=== PATIENT | male | born 1985 | race Caucasian/White ===

== ENCOUNTER 2022-08-18 17:29 | Emergency (ER) | payer BC, OTHER ==
[~2022-08-18] VITALS: Ht 193 cm; Wt 113.0 kg
[2022-08-18 21:44] VITALS: BP 127/70
[2022-08-18] MEDS ORDERED: IBUPROFEN 800 MG TAB PO ONE (22:00)
[2022-08-18] MEDS ORDERED: OSEL75CA5 PO (22:00)
== END 2022-08-18 22:36 | disposition home or self-care (01) ==
LOC: ER 17:29
DX: J11.1 Influenza due to unidentified influenza virus with other respiratory manifestations (principal)
CPT/HCPCS: 71045